=== PATIENT | female | born 1945 | race Caucasian/White ===

== ENCOUNTER → 2017-06-15 | Outpatient (CLI) | payer OTHER | LOC: FIMAGING 15:10 | PROVIDERS: ATTEND Internal Medicine | DX: N17.9 Acute kidney failure, unspecified (principal) ==

== ENCOUNTER 2017-06-18 22:05 | Emergency (ER) | payer OTHER ==
[2017-06-18 22:14] VITALS: TEMP 98.2
[2017-06-18 23:00] LABS: % IMMATURE GRANULYOCYTES 1.3 % (0.0-1.1); ABSOLUTE IMMATURE GRANULOCYTES 0.08 10^3/uL (0.00-0.10); ADD DIFF? NO; ADD MORPH? YES; ADD SCAN? NO; ATYPICAL LYMPHOCYTE FLAG 10 (0-99); FRAGMENT RBC FLAG 90 (0-99); HEMATOCRIT 24.7 % (38.0-47.0); HEMOGLOBIN 7.9 g/dL (12.6-16.3); LEFT SHIFT FLG 0 (0-99); LIPEMIA HEMOLYSIS FLAG 80 (0-99); MEAN CELL HEMOGLOBIN 21.5 pg (27.9-34.1); PLATELET CLUMPS FLAG 10 (0-99); PLATELET COUNT 161 10^3/uL (150-400); RED BLOOD CELL COUNT 3.67 10^6/uL (4.18-5.33)
[2017-06-18 23:01] LABS: MEAN CELL VOLUME 67.3 fL (81.5-99.8)
--- NOTE | 2017-06-18 23:05 | CPEKG ---
Heart Rate: 75 RR Interval: 800 P-R Interval: 184 QRSD Interval: 88 QT Interval: 404 QTC Interval: 452 P [place]: 62 QRS [place]: -38 T Wave [place]: 48 EKG Severity - ABNORMAL ECG - EKG Impression: SINUS RHYTHM EKG Impression: LEFT AXIS DEVIATION EKG Impression: PROBABLE LEFT VENTRICULAR HYPERTROPHY Electronically Signed By: Beto Root 19-Jun-2017 01:24:01
--- NOTE | 2017-06-18 23:05 | EDPHY ---
H & P Stated Complaint: pt states her BP was high 200/90, c/o DOUGLAS HPI/ROS: CHIEF COMPLAINT: High blood pressure HISTORY OF PRESENT ILLNESS: Patient complains of elevated blood pressure throughout the day. It has been as high as 205 systolic. She had no chest pain. She had no change in her baseline headache. No neuro complaints. She is here because she has had ongoing dysfunction of her kidneys recently, and is concerned about the blood pressure. She contacted her environmental compliance manager and they recommended she come. She started amlodipine today for the 1st time and feels that may be related. She has felt tired throughout the day but no other complaints of any kind. She contacted her environmental compliance manager, and she recommended the patient come to the emergency department given ongoing kidney dysfunction that she is being treated for. REVIEW OF SYSTEMS: Ten systems reviewed and are negative unless otherwise noted in the HPI PAST MEDICAL HISTORY: Acute kidney injury, currently managed by Nephrology. Anemia. Thalassemia trait SOCIAL HISTORY: Nonsmoker. Lives independently with her spouse FAMILY HISTORY: Noncontributory EXAMINATION General Appearance: Alert, no distress Head: normocephalic, atraumatic Eyes: Pupils equal and round, no conjunctival pallor or injection. No subconjunctival hemorrhage or hyphema. ENT, Mouth: Mucous membranes moist. Airway widely patent. Neck: Normal inspection, supple, non-tender Respiratory: Lungs are clear to auscultation. No wheezing, rhonchi or crackles Cardiovascular: Regular rate and rhythm. No murmur Gastrointestinal: Abdomen is soft and nontender Back: non-tender, no bony abnormalities Neurological: GCS 15. A&O, cranial nerves 2-12 grossly intact. nonfocal, normal gait. No dysmetria. No pronator drift. Skin: Warm and dry, no rash. No petechiae or purpura Extremities: Nontender, no pedal edema Psychiatric: Mood and affect normal DIFFERENTIAL DIAGNOSES: Including but not limited to hypertension, hypertensive urgency, malignant hypertension, hypertensive emergency, chronic kidney disease, acute kidney injury, dehydration, anemia, anemia chronic disease MDM: 10:40 p.m. Hypertension that appears to be asymptomatic. She reports a mild headache but this is baseline. It did not change from her baseline headache. It was not sudden in onset. Blood pressure has been elevated but this is primarily on an automatic cuff that is questionable and its validity. She has a blood pressure of 177 systolic at this time. Proceed with laboratory studies an EKG. 11:10 p.m. Patient is feeling well. No chest pain. Vital signs remained stable. Blood pressure ranges from 140 systolic to 175 systolic. 11:30 p.m. I discussed the case with the on-call environmental compliance manager Dr. Betancourt, who is also the patient's established environmental compliance manager. She would like the patient to be given 200 mg of p.o. labetalol. She would like the patient to take this twice daily. She would like to see the patient in her office this week. She informed me that she will contact the patient tomorrow to discuss follow-up and further laboratory studies. No further recommendations. We have adhere to this recommendation with 1st dose ordered at this time. I discussed this with the patient and her spouse. They are happy to hear this and comfortable with the plan of going home. She has no chest pain. Her vital signs remained stable with mild hypertension. Neuro intact. No chest pain. She is discharged home in stable condition with the above plan. SUPERVISION: Patient was evaluated in conjunction with the supervising physician. Please see their note for details. Source: Patient, Family Exam Limitations: No limitations - Personal History Current Tetanus Diphtheria and Acellular Pertussis (TDAP): Unsure - Medical/Surgical History Hx Asthma: No Hx Chronic Respiratory Disease: No Hx Diabetes: No Hx Cardiac Disease: No Hx Renal Disease: Yes Hx Cirrhosis: No Hx Alcoholism: No Hx HIV/AIDS: No Hx Splenectomy or Spleen Trauma: No Other PMH: ARF related to reaction to bactrim, HTN, thalacemia - Social History Smoking Status: Never smoked Constitutional: Initial Vital Signs Temperature (C) 98.2 F 06/18/17 22:09 Heart Rate 82 06/18/17 22:09 Respiratory Rate 16 06/18/17 22:09 Blood Pressure 177/87 H 06/18/17 22:09 O2 Sat (%) 94 06/18/17 22:09 O2 Delivery Mode Room Air Allergies/Adverse Reactions: sulfamethoxazole [From Bactrim] Allergy (Verified 06/18/17 22:09) trimethoprim [From Bactrim] Allergy (Verified 06/18/17 22:09) Home Medications: Medication Instructions Recorded Amlodipine Besylate 06/18/17 Labetalol HCl 200 mg PO BID #30 tablet 06/18/17 Departure - Departure Disposition: Home, Routine, Self-Care Clinical Impression: Elevated serum creatinine, Anemia in chronic illness Hypertension Qualifiers: Hypertension type: unspecified Qualified Code(s): I10 - Essential (primary) hypertension Condition: Good Instructions: Chronic Kidney Disease (ED), DASH Eating Plan (ED), Hypertension (ED) Additional Instructions: 1. Continue previously prescribed medications 2. Start labetalol 200 mg by mouth twice daily at the instruction of environmental compliance manager 3. Follow up with Nephrology this week for definitive care 4. Return to ER for elevated hypertension, chest pain, headache Referrals: WESTLEY DSOUZA [Primary Care Provider] - As per Instructions Lucas Fabian DO [Doctor of Osteopathy] - As per Instructions Prescriptions: Labetalol HCl 200 mg PO BID #30 tablet
[2017-06-18 23:06] VITALS: RESP 18
[2017-06-18 23:06] LABS: INR 1.1 (0.83-1.16); PROTIME(PATIENT) 14.1 SEC (12.0-15.0)
[2017-06-18 23:07] LABS: APTT 26.9 SEC (23.0-38.0)
[2017-06-18 23:17] LABS: ALANINE AMINOTRANSFERASE 30 IU/L (9-52); ALBUMIN 4.6 g/dL (3.5-5.0); ALKALINE PHOSPHATASE 58 IU/L (38-126); ANION GAP 16 mEq/L (8-16); ASPARTATE AMINOTRANSFERASE 18 IU/L (14-46); BILIRUBIN,TOTAL 0.5 mg/dL (0.1-1.4); BILIRUBIN-CONJUGATED 0.3 mg/dL (0.0-0.5); BILIRUBIN-UNCONJUGATED 0.2 mg/dL (0.0-1.1); CALCIUM 9.8 mg/dL (8.5-10.4); CARBON DIOXIDE 20 mEq/l (22-31); CHLORIDE 100 mEq/L (97-110); CREATININE 2.3 mg/dL (0.6-1.0); GLOMERULAR FILTRATION RATE 21; GLUCOSE 87 mg/dL (70-100); SODIUM 136 mEq/L (134-144); TOTAL PROTEIN 8.8 g/dL (6.3-8.2)
[2017-06-18 23:29] LABS: TROPONIN I < 0.012 ng/mL (0.000-0.034)
[2017-06-18] MEDS ORDERED: LABETALOL HCL 200 MG TAB PO ONE (23:38)
[2017-06-19 00:09] VITALS: BP 176/83; PULSE 76; O2SAT 92
[2017-06-19 01:18] LABS: ACANTHOCYTES 1+; ELLIPTOCYTES 2+; HYPOCHROMIA 1+; MICROCYTES 2+; PLATELET ESTIMATE DECREASED (ADEQ)
== END 2017-06-19 00:09 | disposition home or self-care (01) ==
DX: I10 Essential (primary) hypertension (principal); D64.9 Anemia, unspecified; R79.89 Other specified abnormal findings of blood chemistry

== ENCOUNTER 2017-06-26 15:52 | Observation (INO) | payer OTHER ==
[2017-06-26] MEDS ORDERED: ACETAMINOPHEN 325 MG TAB PO PRN (20:27)
[2017-06-26] MEDS ORDERED: ONDANSETRON 4 MG/2 ML VIAL IVP PRN (20:27)
[2017-06-26] MEDS ORDERED: ONDANSETRON DISINTEGRATING 4 MG TAB PO PRN (20:27)
[2017-06-26 20:50] VITALS: RESP 16
[2017-06-26] MEDS ORDERED: amLODIPine BESYLATE 5 MG TAB PO SCH (21:00)
[2017-06-26] MEDS: LABETALOL HCL 200 MG TAB PO SCH (21:15)
[2017-06-26] MEDS ORDERED: NS 1,000 ML IV SCH (21:15)
--- NOTE | 2017-06-26 21:35 | GCON ---
[f rep st] CONSULTATION DATE OF CONSULTATION: 06/26/2017 REASON FOR CONSULTATION: Acute renal failure. HISTORY OF PRESENT ILLNESS: I have been asked to evaluate the patient regarding acute renal failure . She is a 72-year-old woman with very little in the way of past medical history, aside from thalas semia. In early June, she presented with a creatinine of 2.2 and a hemoglobin of 6.5, her recent baseline had been a creatinine 0.9 and hemoglobin of 8 to 9. She was initially sent to the emergenc y room and transfused, she was then evaluated in the office by my partner, Dr. Lucas Fabian, a pproximately 10 days ago. She has also developed new-onset hypertension. Had a large serologic peggy luation that demonstrated an elevated kappa lambda ratio consistent with multiple myeloma. She unde rwent a bone marrow biopsy with Hematology earlier this morning and saw Dr. Fabian for a follow up appointment this afternoon. Her creatinine over the past 10 days has progressively increased fro m 2.1 to 2.3, to 2.8 yesterday. Her hemoglobin yesterday was 6.7. Following discussion with Hemato logy, it was decided to admit the patient for symptomatic anemia. She has been experiencing signifi cant dyspnea on exertion but no orthopnea. She has been fatigued. She does not use NSAIDs at home and has not had difficulty voiding. She recently had a renal ultrasound performed on June 15, w [facility] documented somewhat large kidneys and a suggestion of possible mild right hydronephrosis. PAST MEDICAL HISTORY: 1. Recent acute renal failure as outlined above. 2. New-onset hypertension as outlined above. 3. Presumed multiple myeloma as outlined above. 4. Thalassemia. 5. Osteoarthritis. PAST SURGICAL HISTORY: None. ALLERGIES: Possibly Bactrim, she was recently treated with this and felt awful. ADMISSION MEDICATIONS: Amlodipine 5 mg daily, vitamin C daily, vitamin B12 daily, vitamin D3 daily, and multivitamin daily. SOCIAL HISTORY: She is a nonsmoker, nondrinker. 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 FAMILY HISTORY: Negative for renal disease that she is aware of. It is positive for siblings with thalassemia, her father is the proband. REVIEW OF SYSTEMS: Positive for fatigue and dyspnea on exertion. She denies any lower extremity ed otto, difficulty voiding, nausea, vomiting or diarrhea. Aside from other positives in the HPI, the r emainder of a 10-organ system review is negative. PHYSICAL EXAM: GENERAL: She is well appearing, in no acute distress. VITAL SIGNS: Blood pressure earlier today was 132/70, with heart rate of 72. Oxygenation is normal on room air. HEENT: Scler ae are anicteric. Oral mucosa is moist. NECK: Supple without JVD. No lymphadenopathy. No caroti d bruits. LUNGS: Clear to auscultation bilaterally. BACK: No CVA tenderness. HEART: Regular ra te and rhythm. No murmurs, gallops, or rubs. ABDOMEN: Soft, nontender with normoactive bowel soun ds. I do not appreciate hepatosplenomegaly, masses or bruits. EXTREMITIES: There is no lower extr emity edema. I cannot definitely appreciate pedal pulses but the feet are warm and appear well perf used. SKIN: No skin rashes. NEURO: She is awake, alert, and appropriate. There is no facial jake op. : Camara catheter is absent. LABS: Her most recent chemistries from yesterday documented BUN and creatinine of 37 and 2.8, sodiu m 138, potassium 4.3, chloride 103, CO2 19, calcium 9.6, albumin 4.2, phosphate 4.9. Hemoglobin 6.7 , white blood cell count 5.1, platelets 164. Random urine protein was 41 with random urine creatini ne of 22. A 24-hour urine electrophoresis is pending. [place] lambda ratio on June 14 was 96. S michele IgG was 2460, IgA was 40, IgM was 10. The serum protein immunofixation was positive for a mono clonal IgG kappa. IMPRESSION AND PLAN: 1. Acute renal failure: At this point, the presumptive diagnosis is myeloma-related renal disease. She underwent a bone marrow biopsy earlier today, and these results are pending. There are no hayder ns currently for renal biopsy, as this would not change control manager at this point. If the bone marro w biopsy is negative or demonstrated low-level myeloma that would not in and of itself require thera py, then renal biopsy would likely need to be pursued. There was a suggestion of possible mild unil ateral hydronephrosis on ultrasound 10 days ago, I think this is an artifact and certainly would not explain her recent renal failure. The hope is that with blood transfusion and some gentle hydratio n overnight, her renal function may improve somewhat or at least stabilize. I did discuss with the patient and her this evening that while this is the hope, it is certainly possible that her renal function could continue to deteriorate despite the transfusion. They understand. 2. Anemia: She has been admitted mainly for blood transfusion and symptomatic anemia. She is stat us post bone marrow biopsy earlier today to help guide therapy, but presumably has multiple myeloma and will require chemotherapy. 3. Hypertension: Her blood pressure has been well controlled on amlodipine. Thank you for the consultation. We will follow with you. /[id number]/MODL
--- NOTE | 2017-06-26 21:35 | GHP ---
[f rep st] HISTORY AND PHYSICAL DATE OF ADMISSION: 06/26/2017 CHIEF COMPLAINT: Anemia, STEPHANIE. HPI: A 72-year-old female, with history of thalassemia, hypertension, who was sent over by her brick handler, Dr. Medel, from clinic today with anemia and STEPHANIE. Creatinine today was 2.9, hemoglobin 6.9. The patient had a UTI in May and was treated with Bactrim and developed STEPHANIE. It was suspected that the antibiotics was the cause of injury; however, there was concern for multiple myeloma. Patient underwent a bone marrow biopsy today, which is consistent with this diagnosis. Patient has complained of fatigue, dyspnea with exertion. No overt chest pain. No overt bleeding. No fevers, chills, or sweats. No nausea, vomiting, diarrhea. Patient has not been taking any NSAIDs. REVIEW OF SYSTEMS: I completed a 10-point review of systems, negative except as noted in HPI. PAST MEDICAL HISTORY: 1. Hypertension. 2. Thalassemia. 3. Anemia. 4. STEPHANIE. PAST SURGICAL HISTORY: None. FAMILY HISTORY: Siblings with thalassemia. MEDS: MV, herbal supplement, Norvasc 5mg, Labetalol 200mg BID Allergies: see in [employer] SOCIAL HISTORY: Lives with her . Independent. No alcohol, tobacco, or illicits. 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 PHYSICAL EXAMINATION: VITAL SIGNS: Temperature 36.8, blood pressure 152/78, respirations 14, heart rate is in the 60s, 96% on room air. GENERAL: A well- appearing female, sitting up in bed, no acute distress. HEENT: PERRLA. EOMI. Oropharynx clear. CV: Regular rate and rhythm. No murmurs, gallops, rubs. LUNGS: No crackles or wheezing. ABDOMEN: Soft, nontender, nondistended. Positive bowel sounds. : No suprapubic tenderness. MUSCULOSKELETAL: 5/5 upper and lower extremity strength. NEUROLOGIC: 2 through 12 intact. PSYCHIATRIC: Alert and oriented x3. LABORATORY DATA: From 06/25: WBC 5, hemoglobin 6.7, hematocrit 20, platelets 164. Sodium 138, potassium 4.3, chloride 103, carbon dioxide 19, creatinine 2.8 , BUN 37, alk phos 4.9, beta-2 microglobulin 12.2. Free kappa light chains 129 , free lambda light chains 1.3, free kappa/lambda ratio 9.6. IgG 2460, IgA 40, IgM 10. HOME MEDICATIONS: Multivitamin, herbal supplement, amlodipine 5 mg q.h.s., labetalol 200 mg b.i.d. ASSESSMENT AND PLAN: 1. Newly diagnosed multiple myeloma: Underwent bone marrow biopsy today, elevated kappa/lambda light chain ratio. The patient will be evaluated by Oncology. 2. Acute kidney injury: Initially suspected due to Bactrim, but most likely secondary to multiple myeloma. We will hydrate overnight. 3. Accelerated hypertension: Continue Norvasc and labetalol. 4. Anemia: Secondary to multiple myeloma and thalassemia. Transfuse 2 units tonight. 5. Diet: Regular. 6. Deep venous thrombosis prophylaxis. Sequential compression devices. DISPOSITION: Patient warrants observation admission given acute anemia, warranting transfusion and IV fluid resuscitation. If improved, can likely discharge in the morning. /[id number]/MODL MTDD
[2017-06-27 06:03] LABS: ALBUMIN 3.9 g/dL (3.5-5.0); ANION GAP 13 mEq/L (8-16); CALCIUM 9.4 mg/dL (8.5-10.4); CARBON DIOXIDE 17 mEq/l (22-31); CHLORIDE 102 mEq/L (97-110); CREATININE 2.4 mg/dL (0.6-1.0); GLOMERULAR FILTRATION RATE 20; GLUCOSE 91 mg/dL (70-100); POTASSIUM 3.8 mEq/L (3.5-5.2); SODIUM 132 mEq/L (134-144)
[2017-06-27 06:04] LABS: HEMATOCRIT 22.3 % (38.0-47.0); HEMOGLOBIN 7.3 g/dL (12.6-16.3); MEAN CELL HEMOGLOBIN 22.8 pg (27.9-34.1); MEAN CELL HEMOGLOBIN CONCENTR. 32.7 g/dL (32.4-36.7); RED BLOOD CELL COUNT 3.2 10^6/uL (4.18-5.33)
[2017-06-27 06:06] LABS: MEAN CELL VOLUME 69.7 fL (81.5-99.8); RED CELL DISTRIBUTION WIDTH 23.4 % (11.5-15.2)
[2017-06-27] MEDS ORDERED: MULTIVITAMINS 1 EACH TAB PO SCH (09:00)
[2017-06-27] MEDS ORDERED: Herbals/Supplements -Info Only PO SCH (09:00)
[2017-06-27] MEDS: LABETALOL HCL 200 MG TAB PO SCH (09:34)
--- NOTE | 2017-06-27 14:08 | SOAPPROG ---
MEGAN Progress Note Assessment/Plan: Assessment: 1. arf: creat down a bit s/p prbc's. Presumptive dx is myeloma kidney at this point, bm bx pending to guide therapy. If neg would need renal bx. 2. anemia: feeling better s/p 2u prbc's but minimal increase in hgb due to thalassemia. Pt requesting add'l unit, which seems reasonable. 3. dispo: I'm comfortable with d/c home anytime. Has f/u scheduled with Dr. Fabian. Plan: 06/27/17 14:04 Subjective: Feeling better s/p prbc's overnight but anxious that hgb did not increase more. Objective: Vital Signs Temp Pulse Resp BP Pulse Ox 36.7 C 72 16 144/74 H 93 06/27/17 13:14 06/27/17 13:14 06/27/17 13:14 06/27/17 13:14 06/27/17 13:14 Laboratory Results 06/27/17 05:29 06/27/17 05:29 06/26/17 06/27/17 06/28/17 05:59 05:59 05:59 Intake Total 1020 Balance 1020 Physical Exam - Physical Exam General Appearance: no apparent distress Respiratory: lungs clear Cardiac/Chest: regular rate, rhythm Extremities: swelling (none) ICD10 Worksheet Patient Problems: Problems Problem Status Onset Anemia Acute - ICD10 Problem Qualifiers (1) Anemia Qualifiers: Anemia type: unspecified type Iron deficiency anemia type: I Vitamin B12 deficiency anemia type: V Folate deficiency anemia type: F Bone marrow failure anemia type: B Hemolytic anemia type: H Other causes of anemia: O Chronic kidney disease stage: C Qualified Code(s): D64.9 - Anemia, unspecified
[2017-06-27 16:48] VITALS: BP 165/77; PULSE 67; TEMP 98.5; O2SAT 96
--- NOTE | 2017-06-27 18:52 | GDS ---
[f rep st] DISCHARGE SUMMARY DISCHARGE DIAGNOSES: 1. Anemia, status post transfusion. 2. Acute on chronic renal failure. 3. Suspected new diagnosis multiple myeloma. Bone marrow biopsy pending. 4. Hypertension. 5. Thalassemia. HISTORY: The patient is a 72-year-old female with a history of thalassemia and hypertension, sent f rom the Nephrology Clinic for anemia and acute on chronic renal failure. Creatinine was 2.9 and hem oglobin was 6.9. She recently was treated with Bactrim for urinary tract infection, which caused ac bois forte renal failure. Eventually, however, it was also revealed that she had signs of underlying multi ple myeloma. She had a bone marrow biopsy on the day of presentation, for which formal results are pending. Plan was to admit for observation for IV fluid and some blood transfusions to optimize her situation. Her creatinine did come down to 2.4 and hemoglobin this morning is 7.3. We will give 1 more unit of blood on top that hemoglobin, and then she will discharge home later today. DISCHARGE MEDICATIONS: Please see computer record for full detailed list. There are no new medicat ions given at time of hospital discharge. ADDITIONAL DISCHARGE INSTRUCTIONS: Follow up biopsy results with Hematology. Patient was seen and examined by me on the day of discharge. /[id number]/MODL
== END 2017-06-27 19:05 | disposition home or self-care (01) ==
LOC: F1N 18:53 → INTOOBSV 18:53
PROVIDERS: ADMIT Internal Medicine; ATTEND Internal Medicine
PROC: 30233N1 Transfusion of Nonautologous Red Blood Cells into Peripheral Vein, Percutaneous Approach (ICD-10-PCS; principal; 2017-06-26)
DX: N17.9 Acute kidney failure, unspecified (principal); N18.9 Chronic kidney disease, unspecified; D64.9 Anemia, unspecified; D56.9 Thalassemia, unspecified; I12.9 Hypertensive chronic kidney disease with stage 1 through stage 4 chronic kidney disease, or unspecified chronic kidney disease; M19.90 Unspecified osteoarthritis, unspecified site; Z87.440 Personal history of urinary (tract) infections
CPT/HCPCS: G0378; P9016

== ENCOUNTER → 2017-07-04 | Outpatient (CLI) | payer OTHER | LOC: FIMAGING 13:08 | PROVIDERS: ATTEND Internal Medicine Hematology & Oncology | DX: R93.8 Abnormal findings on diagnostic imaging of other specified body structures (principal) ==

== ENCOUNTER → 2017-07-28 | Outpatient (CLI) | payer OTHER ==
[2017-07-28 19:05] VITALS: BP 118/64; PULSE 88; RESP 20; TEMP 99.3; O2SAT 96
== END ==
LOC: FOBOP 08:05
PROVIDERS: ATTEND Internal Medicine Hematology & Oncology
PROC: 30233N1 Transfusion of Nonautologous Red Blood Cells into Peripheral Vein, Percutaneous Approach (ICD-10-PCS; principal; 2017-07-28)
DX: C90.00 Multiple myeloma not having achieved remission (principal)

== ENCOUNTER 2017-08-29 10:43 | Outpatient (CLI) | payer OTHER ==
[2017-08-29] MEDS ORDERED: ACETAMINOPHEN 325 MG TAB PO ONE (11:15)
[2017-08-29] MEDS ORDERED: diphenhydrAMINE 25 MG CAP PO ONE (11:15)
== END 2017-08-29 16:40 | disposition home or self-care (01) ==
LOC: FOBOP 10:43
PROVIDERS: ATTEND Internal Medicine Hematology & Oncology
PROC: 30233N1 Transfusion of Nonautologous Red Blood Cells into Peripheral Vein, Percutaneous Approach (ICD-10-PCS; principal; 2017-08-29)
DX: C90.00 Multiple myeloma not having achieved remission (principal)
CPT/HCPCS: 36430; P9016; P9021

== ENCOUNTER → 2017-10-02 | Outpatient (CLI) | payer OTHER ==
[~2017-10-02] MED LIST: ACETAMINOPHEN 325 MG TAB PO ONE; diphenhydrAMINE 25 MG CAP PO ONE
== END ==
LOC: FOBOP 16:44
PROVIDERS: ATTEND Internal Medicine Hematology & Oncology
PROC: 30233N1 Transfusion of Nonautologous Red Blood Cells into Peripheral Vein, Percutaneous Approach (ICD-10-PCS; principal; 2017-10-02)
DX: C90.00 Multiple myeloma not having achieved remission (principal)
CPT/HCPCS: 36430; P9016

== ENCOUNTER → 2017-12-04 | Outpatient (CLI) | payer OTHER ==
[~2017-12-04] MED LIST changes: -ACETAMINOPHEN 325 MG TAB PO ONE; +ALTEPLASE 2 MG VIAL IVP PRN; +FLUMAZENIL 0.5 MG/5 ML MDV IVP PRN; +GLUCAGON HCL 1 MG VIAL IVP PRN; +HEPARIN 10,000 UNIT/10 ML MDV (1,000 UNIT/ML) IVP PRN; +MEPERIDINE 25 MG/ML SYR IVP PRN; +MIDAZOLAM 2 MG/2 ML VIAL IVP PRN; +NALOXONE HCL 0.4 MG/ML INJ IVP PRN; +NS 1,000 ML IV SCH; +PROTAMINE SULFATE 50 MG/5 ML VIAL IVP PRN; -diphenhydrAMINE 25 MG CAP PO ONE; +fentaNYL 100 MCG/2 ML INJ IVP PRN
== END ==
LOC: FIMAGING 09:05
PROVIDERS: ATTEND Physician Assistant
DX: K76.89 Other specified diseases of liver (principal); C90.00 Multiple myeloma not having achieved remission
CPT/HCPCS: J2250; J3010

== ENCOUNTER 2017-12-14 15:01 | Outpatient (CLI) | payer OTHER | END 2017-12-14 21:30 | disposition home or self-care (01) | LOC: FOBOP 15:01 | PROVIDERS: ATTEND Internal Medicine Hematology & Oncology | PROC: 30233N1 Transfusion of Nonautologous Red Blood Cells into Peripheral Vein, Percutaneous Approach (ICD-10-PCS; principal; 2017-12-14) | DX: C90.00 Multiple myeloma not having achieved remission (principal) | CPT/HCPCS: 36430; P9016 ==

== ENCOUNTER → 2017-12-15 | Outpatient (CLI) | payer OTHER | LOC: FIMAGING 13:48 | PROVIDERS: ATTEND Radiology Diagnostic Radiology | DX: S32.050D Wedge compression fracture of fifth lumbar vertebra, subsequent encounter for fracture with routine healing (principal); M51.26 Other intervertebral disc displacement, lumbar region; M46.96 Unspecified inflammatory spondylopathy, lumbar region; M48.061 Spinal stenosis, lumbar region without neurogenic claudication; M51.27 Other intervertebral disc displacement, lumbosacral region; M46.97 Unspecified inflammatory spondylopathy, lumbosacral region; M48.07 Spinal stenosis, lumbosacral region; G96.19 Other disorders of meninges, not elsewhere classified ==

== ENCOUNTER 2017-12-28 12:27 | Day surgery (SDC) | payer OTHER ==
[2017-12-28] MEDS ORDERED: IOPAMIDOL (ISOVUE-M 300) 15 ML VIAL ONE (13:36)
[2017-12-28] MEDS ORDERED: TRIAMCINOLONE ACETONIDE 200 MG/5 ML MDV IM ONE (13:36)
== END 2017-12-28 14:10 | disposition home or self-care (01) ==
LOC: FIMAGING 12:27
PROVIDERS: ATTEND Radiology Diagnostic Radiology
PROC: 3E0S3BZ Introduction of Anesthetic Agent into Epidural Space, Percutaneous Approach (ICD-10-PCS; principal; 2017-12-28)
PROC: 3E0S33Z Introduction of Anti-inflammatory into Epidural Space, Percutaneous Approach (ICD-10-PCS; principal; 2017-12-28)
DX: M54.16 Radiculopathy, lumbar region (principal); S32.050S Wedge compression fracture of fifth lumbar vertebra, sequela
CPT/HCPCS: J3301; Q9967

== ENCOUNTER 2018-10-18 11:48 | Day surgery (SDC) | payer OTHER ==
[2018-10-18] MEDS ORDERED: IOPAMIDOL (ISOVUE-M 300) 15 ML VIAL ONE (13:24)
[2018-10-18] MEDS ORDERED: TRIAMCINOLONE ACETONIDE 200 MG/5 ML MDV IM ONE (13:24)
== END 2018-10-18 13:45 | disposition home or self-care (01) ==
LOC: FIMAGING 11:48
PROVIDERS: ATTEND Radiology Diagnostic Radiology
DX: M54.5 Low back pain (principal); C90.00 Multiple myeloma not having achieved remission
CPT/HCPCS: J3301; Q9967